=== PATIENT | male | born 1940 | race Caucasian/White ===

== ENCOUNTER → 2019-04-18 18:18 | Outpatient (ROUT) | payer MEDICARE, SELFPAY | PROVIDERS: Visit Provider Internal Medicine | DX: S91.301A Unspecified open wound, right foot, initial encounter (principal) | CPT/HCPCS: 87070; 87075; 87077; 87147; 87205 ==

== ENCOUNTER → 2019-04-27 16:19 | Outpatient (ROUT) | payer MEDICARE, SELFPAY | PROVIDERS: Visit Provider Internal Medicine | DX: L03.115 Cellulitis of right lower limb (principal) | CPT/HCPCS: 87070; 87075; 87077; 87186; 87205 ==

== ENCOUNTER 2019-05-03 01:21 | Emergency (ER) | payer MEDICARE, OTHER, SELFPAY ==
--- NOTE | 2019-05-03 01:28 | DI.RAD.S_ITS ---
PROCEDURE: XR ANKLE RT MIN 3V INDICATIONS: fall with ankle pain TECHNIQUE: 3 views of the ankle were acquired. COMPARISON: None. FINDINGS: Bones: No fractures or dislocations. Ankle mortise is normally aligned. No suspicious bony lesions. Soft tissues: No tibiotalar joint effusion. Achilles tendon appears normal. IMPRESSION: No evidence acute bony abnormality of the right ankle Dictated by: Miguel Osuna M.D. on 05/03/2019 at 9:32 Approved by: Miguel Osuna M.D. on 05/03/2019 at 9:33
[2019-05-03 01:31] VITALS: BP 162/89; PULSE 94; RESP 18; TEMP 36.6; O2SAT 100
--- NOTE | 2019-05-03 01:51 | ED.LOWEXIN ---
HPI - Extremity Injury (Lower) General Chief Complaint: Extremity Injury, Lower Stated Complaint: slipped on sidewalk scraped right ankle, swollen Time Seen by Provider: 05/03/19 01:24 Source: patient and family Mode of arrival: ambulatory Limitations: no limitations History of Present Illness HPI Narrative: 78-year-old male nonsmoker presents with a chief complaint of medial right ankle pain. Patient is had a poorly healing wound from a prior injury occurred in this location and had been seen by a local primary care provider but has had an additional fall, for purely mechanical reasons in the absence of other injuries, since then. He denies fever chills nor nausea or vomiting. He has full sensation and ROM. MD complaint: ankle injury Type of Injury: inversion Place: street/outdoors Severity: mild Relieving factors: nothing Context: fall Other symptoms: none Related Data Allergies Allergy/AdvReac Type Severity Reaction Status Date / Time Penicillins Allergy Unknown Verified 05/03/19 01:39 NSAIDS (Non-Steroidal Allergy Verified 05/03/19 01:40 Anti-Inflamma Review of Systems Constitutional Denies chills, Denies fever(s), Denies lethargy and Denies weakness Eyes Denies change in vision, Denies eye discharge, Denies irritation and Denies loss of vision ENT Ears, Nose, Mouth, and Throat: Denies change in voice, Denies neck pain and Denies sore throat Cardiovascular Denies chest pain, Denies irregular heart rhythm, Denies lightheadedness, Denies palpitations, Denies dyspnea, Denies dyspnea on exertion and Denies orthopnea Respiratory Denies cough, Denies dyspnea, Denies dyspnea on exertion and Denies wheezing Gastrointestinal Gastrointestinal: Denies abdominal pain, Denies change in bowel habits, Denies diarrhea, Denies nausea and Denies vomiting Genitourinary Denies hematuria, Denies flank pain, Denies urinary incontinence and Denies urinary urgency Musculoskeletal Denies neck pain Integumentary/Breasts Denies pruritus, Reports erythema, Denies rash and Reports wounds Neurologic Denies confusion, Denies loss of vision and Denies weakness Psychiatric Denies anxiety, Denies confusion, Denies depression, Denies homicidal ideation and Denies suicidal ideation Endocrine Denies palpitations Hematologic/Lymphatic Denies easy bruising Allergic/Immunologic Denies wheezing [facility] Social History Smoking Status: Never smoker Social History Smoking Status: Never smoker Exam Narrative Exam Narrative: GEN: AOx3 and in mild distress EYES: Pupils are equal, round, and reactive to light and accommodation. Extraoccular muscles are intact bilaterally. There is no subconjunctival hemorrhage or exudate. CHEST: Lungs are clear to auscultation bilaterally and free of wheezes, rales, or rhonchi. Heart rate is regular rhythm, there are no murmurs, clicks, rubs, or gallops. There is no chest wall tenderness. ABD: Abdomen is soft and nontender. There is no guarding or rebound. Bowel sounds are normal in all 4 quadrants. There is no mass or organomegaly. EXT: Full painless ROM of all extremities with no loss of sensation or strength. No bony point tenderness SKIN: Evidence of chronic venous stasis. Right medial ankle is ecchymotic with a small amount of skin breakdown no drainage there is some tenderness to palpation. Erythema of distal tibia. Initial Vital Signs Initial Vital Signs: Vital Signs Temperature 97.8 F 05/03/19 01:31 Pulse Rate 94 H 05/03/19 01:31 Respiratory Rate 18 05/03/19 01:31 Blood Pressure 162/89 H 05/03/19 01:31 Pulse Oximetry 100 05/03/19 01:31 Course Orders Ordered: ED Orders 05/03/19 01:28 XR ankle RT min 3V Stat Reevaluation(s) Reevaluation #1: bedside US w/doppler demonstrates pulsatile flow in the DP Vital Signs - 8 hr 05/03/19 01:31 05/03/19 02:04 Temperature 97.8 F Pulse Rate 94 H 94 H Respiratory Rate 18 Blood Pressure 162/89 H Blood Pressure [Left Arm] 186/75 H Pulse Oximetry 100 100 MDM - Extremity Injury (Lower) MDM Narrative Medical decision making narrative: 78M with R medial ankle pain. He fell and has a poorly healing skin tear. He has seen his PCP and was placed on Doxycyline which didn't do much but was then changed to Levaquin yesterday. Xray shows no bony abnormality. Patient has good follow up already arranged. Return precautions given, questions answered to apparent satisfaction Discharge Plan Departure Patient Disposition: Home Clinical Impression: Ankle cellulitis Instructions: DI for Cellulitis -- Adult Activity Restrictions/Additional Instructions: *You have been diagnosed with [cellulitis of right ankle with peripheral vascular disease] *What to do: * continue to take medications as directed *Follow up with your primary care provider on as planned *Return to ER if you should have any new, worsening or concerning symptoms
[2019-05-03 02:04] VITALS: BP 186/75; PULSE 94; O2SAT 100
[2019-05-03 02:44] VITALS: BP 175/84; PULSE 89; O2SAT 100
[2019-05-03 03:02] VITALS: BP 175/84; PULSE 91; RESP 16; O2SAT 100
== END 2019-05-03 03:04 | disposition home or self-care (01) ==
PROVIDERS: Emergency Provider Emergency Medicine
DX: L03.119 Cellulitis of unspecified part of limb (principal); M25.571 Pain in right ankle and joints of right foot; W19.XXXA Unspecified fall, initial encounter
CPT/HCPCS: 73610; 99282; 99283